=== PATIENT | male | born 1955 | race Caucasian/White ===

== ENCOUNTER 2024-03-12 07:22 | Day surgery (SDC) | payer MEDICARE ==
[2024-03-12] VITALS (12 sets, daily range): BP systolic 116–153; BP diastolic 67–87; PULSE 51–97; RESP 9–19; TEMP 97.8; O2SAT 96–100
[~2024-03-12] VITALS: Ht 182.9 cm; Wt 97.4 kg
[2024-03-12] MEDS ORDERED: METO-395 PO (07:46)
[2024-03-12] MEDS ORDERED: NITR0.4T48 (07:46)
[2024-03-12] MEDS ORDERED: nitroGLYCERIN 0.4mg SUBLingual tab SL PRN (07:50)
[2024-03-12] MEDS ORDERED: iohexol 350 MG/ML 50ML vial IV ONE (08:24)
[2024-03-12] MEDS ORDERED: fentaNYL/PF 50MCG/1 ML 2ML syringe ONE (08:24)
[2024-03-12] MEDS ORDERED: midazolam 1 mg/ML 2ml injection ONE ×2 (08:24→09:48)
[2024-03-12] MEDS ORDERED: LIDOcaine 1% 30ml preserv. free vial ONE (08:24)
[2024-03-12 08:25] LABS: ALBUMIN 3.8 G/DL (3.4-5.0); ANION GAP 6 (8-16); BLOOD UREA NITROGEN 16 MG/DL (7-18); BUN/CREATININE RATIO 20.8 (10.0-20.0); CHLORIDE 107 MMOL/L (99-107); CREATININE 0.77 MG/DL (0.60-1.10); GLUCOSE 111 MG/DL (70-104); POTASSIUM 3.8 MMOL/L (3.5-5.1); SODIUM 141 MMOL/L (135-145); TOTAL CARBON DIOXIDE 27.8 MMOL/L (24-32); eCRCL 104 ML/MIN; eGFR > 90 ML/MIN
[2024-03-12] MEDS ORDERED: heparin 1,000 UNITS/NS 500ml 500 ML ONE ×2 (08:25→09:16)
[2024-03-12] MEDS ORDERED: iohexol 350MG/ML 100ml bottle IV ONE (08:25)
[2024-03-12 08:29] LABS: APTT 28 SECONDS (22-32); PROTHROMBIN TIME 10.2 SECONDS (9.0-12.0)
[2024-03-12] MEDS: LORazepam 0.5 MG tablet PO PRN (08:32)
[2024-03-12] MEDS: normal saline 1,000 ML IV SCH (08:32)
[2024-03-12] MEDS: diphenhydrAMINE 25mg capsule PO PRN (08:32)
[2024-03-12 08:36] LABS: WHITE BLOOD COUNT 6.4 X10'3 (4.5-11.0)
[2024-03-12 08:37] LABS: BASOPHILS % (AUTO) 0.7 % (0-1); EOSINOPHILS # (AUTO) 0.1 X10'3 (0-0.9); HEMATOCRIT 51.4 % (42.0-52.0); HEMOGLOBIN 17.5 g/dl (14.0-17.9); LYMPHOCYTES # (AUTO) 1.8 X10'3 (1.1-4.8); LYMPHOCYTES % (AUTO) 28.6 % (21-51); MEAN CORPUSCULAR HEMOGLOBIN 30.9 PG (27.0-31.0); MEAN CORPUSCULAR VOLUME 90.8 FL (78-98); MEAN PLATELET VOLUME 7.8 FL (7.4-10.4); MONOCYTES # (AUTO) 0.3 X10'3 (0-0.9); MONOCYTES % (AUTO) 5.4 % (2-12); NEUTROPHILS # (AUTO) 4.1 X10'3 (1.8-7.7); NEUTROPHILS % (AUTO) 64.3 % (42-75); PLATELET COUNT 239 X10'3 (140-440); PRO BRAIN NATRIURETIC PEPTIDE 53 PG/ML (0-125); RED BLOOD COUNT 5.66 X10'6 (4.70-6.10); RED CELL DISTRIBUTION WIDTH 13.6 % (11.5-14.5)
[2024-03-12] MEDS ORDERED: HYDROcodone/acetaminophen 10/325mg tab PO PRN (10:25)
[2024-03-12] MEDS ORDERED: ondansetron/PF 4mg/2ml inj IV PRN (10:25)
[2024-03-12] MEDS ORDERED: proCHLORperazine 10 MG/2 ml inj IV PRN (10:25)
[2024-03-12] MEDS ORDERED: OXAZEpam 15mg capsule PO PRN (10:25)
[2024-03-12] MEDS ORDERED: normal saline 1000ml 1,000 ML IV SCH (10:25)
[2024-03-12] MEDS ORDERED: HYDROcodone/acetaminophen 5mg/325mg tablet PO PRN (10:25)
== END 2024-03-12 16:10 | disposition home or self-care (01) ==
LOC: SSTAY O 07:22
PROVIDERS: ATTEND Internal Medicine Cardiovascular Disease
DX: R94.39 Abnormal result of other cardiovascular function study (principal); I20.9 Angina pectoris, unspecified; I10 Essential (primary) hypertension; G47.30 Sleep apnea, unspecified; Z86.16 Personal history of COVID-19
CPT/HCPCS: 36415; 71046; 80048; 83880; 84484; 85025; 85610; 85730; 93005; 93458; 99152; A6258; C1760; C1769; J1644; J2001; J2250; J3010; J7030; Q0163; Q9967; Z7610; J3490